=== PATIENT | female | born 1990 | race Caucasian/White ===

== ENCOUNTER → 2023-04-27 11:11 | Outpatient (CLI) | payer BC, SELFPAY ==
[2023-04-27 12:01] LABS: Basophils % 0.3 % (0.1-2.0); Eosinophils # 0.2 K/mm3 (0.0-0.4); Eosinophils % 2.5 % (0.1-12.0); Hematocrit 39.3 % (37.0-47.0); Hemoglobin 12.8 g/dL (12.2-16.2); Mean Corpuscular HGB Conc 32.5 g/dL (31.8-35.4); Mean Corpuscular Hemoglobin 28.6 pg (27.0-31.2); Mean Corpuscular Volume 87.9 fl (81-99); Monocytes # 0.3 K/mm3 (0.1-1.0); Monocytes % 4.3 % (1.7-9.3); Neutrophils # 5.1 K/mm3 (1.8-7.8); Neutrophils % 66.9 % (37.0-80.0); Platelet Count 289 K/mm3 (142-424); Red Blood Count 4.47 M/mm3 (4.20-5.40); White Blood Count 7.6 K/mm3 (4.8-10.8)
[2023-04-29 11:50] LABS: Progesterone 11.5 ng/mL (.); Rapid Plasma Reagin Ab Titer Non Reactive titer (NonRea<1:1)
[2023-05-01 08:57] LABS: HIV Screen 4th Generation wRfx Non Reactive; Hepatitis B Surface Antigen Negative; Hepatitis C Antibody Non Reactive
[2023-05-01 08:58] LABS: Rubella Antibodies, IgG <0.90
== END ==
PROVIDERS: PCP Family Medicine; Visit Provider Obstetrics & Gynecology
DX: Z34.91 Encounter for supervision of normal pregnancy, unspecified, first trimester (principal); Z3A.01 Less than 8 weeks gestation of pregnancy
CPT/HCPCS: 36415; 84144; 84702; 85025; 86593; 86703; 86762; 86850; 87086; 87340; 87380; G0432

== ENCOUNTER 2023-07-31 10:08 | Outpatient (CLI) | payer BC, SELFPAY ==
--- NOTE | 2023-07-31 10:08 | US_ITS ---
PROCEDURE: US OB /MATERNAL DETAIL CLINICAL INDICATION: 20 week anatomy scan COMPARISON: No exams were available for comparison FINDINGS: Transabdominal sonographic images of the pelvis were obtained. From her established due date she is 20 weeks 5 days. Single viable intrauterine gestation. Breech position. Placenta: Anteriorplacenta grade 1. There is an average amount of fluid. The cervix appears satisfactory. Closed and measuring 4.0 cm in length. Complete survey performed and was unremarkable on the submitted images as in PACS. No discrete anomalies identified on survey imaging by technologist. Active fetus. Three-vessel cord with satisfactory umbilical cord insertion. 4- chamber heart noted. Situs, aortic arch, LVOT, three-vessel view appear normal. Survey of brain & ventricles Unremarkable. Cerebellum, thalamus, choroid plexus, cisterna magna appear normal. Face and neck survey unremarkable. Profile, nasion, lips and nose appeared normal. Diaphragm and chest views unremarkable. Abdomen: Both kidneys noted and unremarkable. Stomach and bladder noted and satisfactory. Spine: Survey of the spine satisfactory with no anomalies identified nor imaged. Cervical, thoracic, lower spine appear normal. Both arms and legs noted. Amniotic Fluid: Adequate. MVP 4.47 cm. Measurements: Average ultrasound age 21weeks 3days. Estimated due date by ultrasound age 0512/08/2023. Estimated weight 417g BPD = 21weeks 1day HC = 21weeks 3days AC = 21weeks 5days FL = 21weeks 1day Heart Rate = 153bpm Cerebellum = 20weeks 4days Humerus = 21weeks 4days HC/AC is 1.15 FL/BPD is 0.7 FL/AC is 0.21 IMPRESSION: 1. Viable fetus in the breech presentation with an anterior placenta grade 1. 2. The fluid is within normal limits. 3. Anatomical scan appears normal. 4. biometry is consistent with a dates. 5. There are prominent veins measuring up to 1.6 cm in the right lower quadrant adjacent to the uterus. 6. There may be some increased vascularity anterior to the placenta as well. Suggest follow-up examination in 4-6 weeks. Dictated by: Musa Gonzalez MD 07/31/2023 17:35 Musa Gonzalez MD in [facility] 07/31/2023 17:35
== END 2023-07-31 23:59 ==
LOC: RAD 10:08
PROVIDERS: PCP Family Medicine; Visit Provider Obstetrics & Gynecology
DX: Z34.92 Encounter for supervision of normal pregnancy, unspecified, second trimester (principal); Z3A.20 20 weeks gestation of pregnancy
CPT/HCPCS: 76811

== ENCOUNTER 2023-08-28 11:00 | Outpatient (CLI) | payer BC, SELFPAY ==
--- NOTE | 2023-08-28 11:01 | US_ITS ---
PROCEDURE: US OB LIMITED POSITION CLINICAL INDICATION: breech presentation, and placental abnormality COMPARISON: US US OB /MATERNAL DETAIL from 07/31/2023 FINDINGS: Transabdominal sonographic images of the pelvis were obtained. The following parameters are obtained: From her established due date she is 24weeks 5days Viable fetus in the cephalic presentation with an anterior placenta grade 1. The placenta is 3.6 cm from the internal cervical os. The increased vascularity in the right lower quadrant was not seen today. Repeat imaging of the RLQ of the uterus should be performed. The cervix measures 4.5 cm. heart rate: 140bpm bpm. Amniotic fluid appears normal. No obvious anomalies evident. profile seen, nasion, stomach, bladder, kidneys, three-vessel cord, four chamber heart appear normal. IMPRESSION: 1. Viable fetus in the cephalic presentation with an anterior placenta grade 1. The placenta is 3.6 cm from the internal cervical os. 2. Increased vascularity in the right lower quadrant was not seen today and repeat imaging to include the right lower quadrant of the uterus should be done. 3. The fluid is within normal limits. 4. Limited anatomical scan appears normal. Dictated by: Musa Gonzalez MD 08/28/2023 14:39 Musa Gonzalez MD in [facility] 08/28/2023 14:39
== END 2023-08-28 23:59 ==
LOC: RAD 11:01
PROVIDERS: PCP Family Medicine; Visit Provider Obstetrics & Gynecology
DX: O32.1XX0 Maternal care for breech presentation, not applicable or unspecified (principal); O43.102 Malformation of placenta, unspecified, second trimester; Z3A.24 24 weeks gestation of pregnancy
CPT/HCPCS: 76815

== ENCOUNTER 2023-10-06 09:18 | Outpatient (CLI) | payer BC, SELFPAY ==
[2023-10-06 09:56] LABS: Basophils # 0.1 K/mm3 (0-0.2); Basophils % 0.5 % (0.1-2.0); Eosinophils # 0.3 K/mm3 (0.0-0.4); Eosinophils % 2.7 % (0.1-12.0); Hematocrit 37.7 % (37.0-47.0); Hemoglobin 12.5 g/dL (12.2-16.2); Lymphocytes % 16.4 % (10-50); Mean Corpuscular HGB Conc 33.2 g/dL (31.8-35.4); Mean Corpuscular Hemoglobin 31.4 pg (27.0-31.2); Mean Corpuscular Volume 94.5 fl (81-99); Mean Platelet Volume 8.5 fl (7.4-10.4); Monocytes # 0.4 K/mm3 (0.1-1.0); Monocytes % 3.3 % (1.7-9.3); Neutrophils # 9.5 K/mm3 (1.8-7.8); Neutrophils % 77.1 % (37.0-80.0); Platelet Count 324 K/mm3 (142-424); Red Blood Count 3.99 M/mm3 (4.20-5.40); Red Cell Distribution Width 13.7 % (11.5-17.5); White Blood Count 12.3 K/mm3 (4.8-10.8)
[2023-10-06 10:26] LABS: Glucose,Fasting 88 mg/dl (74-100)
[2023-10-06 14:52] LABS: Glucose 1 Hour 130 mg/dL (74-100)
== END 2023-10-06 23:59 ==
LOC: LAB 09:19
PROVIDERS: PCP Family Medicine; Visit Provider Obstetrics & Gynecology
DX: O26.893 Other specified pregnancy related conditions, third trimester (principal); Z3A.30 30 weeks gestation of pregnancy
CPT/HCPCS: 36415; 82951; 85025

== ENCOUNTER 2023-10-17 12:55 | Outpatient (CLI) | payer BC, SELFPAY ==
--- NOTE | 2023-10-17 | US_ITS ---
PROCEDURE: US OB FOLLOW UP CLINICAL INDICATION: SGA COMPARISON: US US OB /MATERNAL DETAIL from 07/31/2023 US US OB LIMITED POSITION from 08/28/2023 FINDINGS: Transabdominal sonographic images of the pelvis were obtained. The following parameters are obtained: From her established due date she is 31weeks 6days Viable fetus in the cephalic presentation with a posterior placenta grade 1. The cervix measures 4.6 cm. heart rate: 140bpm bpm. weight: 2196 grams, 4 lb 13 oz. BPD: 33weeks 5days, 88 percentile HC: 34weeks 4days, 83 percentile AC: 33weeks 2days, 84 percentile FL: 33weeks 4days, 80 percentile HC/AC: 1.06 FL/BPD: 0.78 FL/AC: 0.22 Growth percentile: 87 Amniotic fluid index: 14.31cm, MVP 5.29 cm. S/ D ratio: 2.19-2.92 No obvious anomalies evident. stomach, bladder, kidneys, three-vessel cord, four chamber heart appear normal. There continues to be prominent vascularity in the right lower quadrant with enlarged vessels measuring up to 1.7 cm in diameter. IMPRESSION: 1. Viable fetus in the cephalic presentation with an anterior placenta grade 1. 2. The fluid is within normal limits with an amniotic fluid index of 14.31 cm, MVP 5.29 cm. 3. There has been good interval growth and the fetus is currently 87th percentile, globally almost 2 weeks ahead on its growth. 4. The SD ratio today is normal. 5. There continues to be prominent vascularity in the right lower quadrant with vessels measuring up to 1.7 cm in diameter. Dictated by: Musa Gonzalez MD 10/18/2023 05:54 Musa Gonzalez MD in [facility] 10/18/2023 05:54
== END 2023-10-17 23:59 ==
LOC: RAD 12:55
PROVIDERS: PCP Family Medicine; Visit Provider Obstetrics & Gynecology
DX: O36.5930 Maternal care for other known or suspected poor fetal growth, third trimester, not applicable or unspecified (principal); Z3A.32 32 weeks gestation of pregnancy
CPT/HCPCS: 76816; 76820

== ENCOUNTER 2023-11-19 16:40 | Outpatient (CLI) | payer BC, SELFPAY | END 2023-11-19 23:59 | disposition home or self-care (01) | LOC: LAB.DROPOF 16:41 | PROVIDERS: PCP Obstetrics & Gynecology; Visit Provider Obstetrics & Gynecology | DX: O26.893 Other specified pregnancy related conditions, third trimester (principal); Z3A.37 37 weeks gestation of pregnancy; Z36.85 Encounter for antenatal screening for Streptococcus B | CPT/HCPCS: 86403 ==

== ENCOUNTER 2023-12-05 15:14 | Inpatient (IN) | payer BC, SELFPAY ==
[2023-12-05 13:45] VITALS: BP 134/99; PULSE 91; RESP 18; TEMP 37.2; O2SAT 98; BMI 33.5
[2023-12-05 16:12] LABS: Microscopic, Urine URINE MICROSCOPIC (MICROSCOPIC)
[2023-12-05 16:20] LABS: Basophils # 0.1 K/mm3 (0-0.2); Basophils % 0.3 % (0.1-2.0); Eosinophils # 0.5 K/mm3 (0.0-0.4); Eosinophils % 2.9 % (0.1-12.0); Hematocrit 37.9 % (37.0-47.0); Hemoglobin 12.7 g/dL (12.2-16.2); Lymphocytes # 2.2 K/mm3 (0.7-4.5); Lymphocytes % 14.4 % (10-50); Mean Corpuscular HGB Conc 33.5 g/dL (31.8-35.4); Mean Corpuscular Hemoglobin 30.8 pg (27.0-31.2); Mean Corpuscular Volume 91.9 fl (81-99); Mean Platelet Volume 8.5 fl (7.4-10.4); Monocytes # 0.5 K/mm3 (0.1-1.0); Monocytes % 3.4 % (1.7-9.3); Neutrophils # 12.3 K/mm3 (1.8-7.8); Platelet Count 256 K/mm3 (142-424); Red Blood Count 4.12 M/mm3 (4.20-5.40); Red Cell Distribution Width 14.3 % (11.5-17.5); White Blood Count 15.6 K/mm3 (4.8-10.8)
[2023-12-05 16:23] LABS: MANUAL DIFFERENTIAL MANUAL DIFFERENTIAL (MANUAL DIFF)
[2023-12-05 16:32] LABS: Eosinophils % 1 % (0-3); Lymphocytes % 16 % (10-50); Monocytes % 2 % (2-9); Neutrophils % 81 % (42-76); Platelet Estimate Normal; RBC Morphology Normal; Total Cells Counted 100
[2023-12-05 16:44] LABS: Appearance,Urine CLEAR (Clear); Bilirubin,Urine Negative (Negative); Blood, Urine TRACE-I (Negative); Color,Urine YELLOW (Yellow); Glucose,Urine (UA) Negative (Negative); Ketones,Urine Negative (Negative); Leukocyte Esterase,Urine Negative (Negative); Nitrate,Urine Negative (Negative); Protein,Urine Negative (Negative); Specific Gravity, Urine 1.015 (1.005-1.030); Urobilinogen,Urine 0.2 EU/dl (0.2)
[2023-12-05 16:56] LABS: Amphetamine/Metha Screen,Urine Negative ng/ml (<1000); Barbiturates Screen,Urine Negative ng/ml (<200)
[2023-12-05 16:57] LABS: Bacteria,Urine Trace /lpf; Benzodiazepines Screen,Urine Negative ng/ml (<200); RBC,Urine Occasional #/hpf (0-3); WBC,Urine Occasional #/hpf (0-3)
[2023-12-05 16:58] LABS: Cannabinoid Screen,Urine Negative ng/ml (<50); Cocaine Screen,Urine Negative ng/ml (<300)
[2023-12-05 16:59] LABS: Methadone Screen,Urine Negative ng/ml (<300)
[2023-12-05 17:00] LABS: Opiate Screen,Urine Negative ng/ml (<300); Phencyclidine Screen,Urine Negative ng/ml (<25)
[2023-12-05 19:43] VITALS: BP 132/94; PULSE 98; RESP 18; TEMP 36.8; O2SAT 96
[2023-12-06] MEDS: DEXTROSE 5%-LACTATED RINGERS 1,000 ML 125 ML IV (01:05)
[2023-12-06] MEDS: OXYTOCIN/RINGERS LACTATE 30 UNITS/500 ML BAG IV (01:05)
[2023-12-06] MEDS: LACTATED RINGERS 1000ML 1,000 ML 500 ML IV (01:06)
[2023-12-06] MEDS: BUTORPHANOL TARTRATE 2 MG/ML VIAL 1 MG IV (01:59)
[2023-12-06] MEDS: ONDANSETRON 4MG/2ML VIAL 4 MG IV (02:04)
--- NOTE | 2023-12-06 06:10 | P.PNANES_ITS ---
[facility] Disclaimer: The information contained in this section may have been updated after the patient was seen, as this information can be updated by other users. Medical History Vaginitis affecting , antepartum Rubella non-immune status, antepartum History of pre-eclampsia in prior , currently Preeclampsia Surgical History No significant past surgical history Family History Other Substance abuse Social History Smoking Status: Former smoker alcohol intake: never substance use type: denies use current occupational status: unemployed Travel in the last 8 weeks: None [facility] Anesthesia Checklist Patient Identification Patient Identification: Arm Band Structural Data Admitted From: Inpatient Planned Operative Procedure/s: Labor Epidural Consent for Planned Operative Procedure(s) Verified: Yes Verified Documents: Surgical Consent and History and Physical Additional verifications Anesthesia Reactions: No Airway Assessment Dentition: Good Dentition Neurological Assessment Level of Consciousness: Awake, Alert and Appropriate Anesthesia Plan Anesthesia Risk discussed: Yes Anesthesia Plan: Verified ASA Class: II Anesthesia Type: Epidural
[2023-12-06] MEDS: OXYTOCIN/RINGERS LACTATE 30 UNITS/500 ML BAG 999 UNITS IV (08:34)
--- NOTE | 2023-12-06 08:44 | P.PCN_ITS ---
Delivery Note Delivery Date:: 12/06/23 Delivery Time:: 08:30 Anesthesia Type: Epidural Was labor medically induced?: No Induction method: none Gestational age (weeks): 39 delivered prior to 39 weeks?: No Gender: Female at 1 minute: 8 at 5 minutes: 9 Delivery Procedure:: Preoperative diagnosis: 1. at 39 completed this weeks gestation, vertex 2. Rh positive 3. GBS negative 4. History of shoulder dystocia 5. History of preeclampsia with the past 2 pregnancies Postoperative diagnosis: 1. at 39 completed this weeks gestation, vertex 2. Rh positive 3. GBS negative 4. History of shoulder dystocia 5. History of preeclampsia with the past 2 pregnancies EBL: 150mL Specimen: 1. Cord blood Findings: 1. Liveborn viable female infant. Apgars 8/9 at 1 and 5 minutes respectively. Weight pending at time of dictation 2. First degree midline perineal laceration. Periclitoral abrasion Complications: Shoulder dystocia Procedure: Nonoperative spontaneous vaginal delivery Eloisa Shay is a 33-year-old who presented to labor and delivery yesterday with regular painful contractions was noted to make cervical change. She was admitted overnight for labor. Pitocin augmentation was started this morning. She had SROM revealing clear fluid around 730 this morning. She quickly progressed to complete. Her has been relatively uncomplicated. The infant was noted to be in ZOE position. There was not a nuchal cord at time of delivery. The vertex delivered with ease however the shoulders were not coming in after allowing approximately 10 seconds a shoulder dystocia was called and the patient was placed in Kristina. The anterior left shoulder quickly delivered after that not requiring any further maneuvers and the total time for shoulder delivery was approximately 10 seconds. The posterior shoulder delivered without problem. It was felt this was more of a problem secondary to the weight of the and less to the shoulders. The was bulb suctioned and was crying immediately following delivery. The was placed on the maternal abdomen and greater than one minute was appreciated for delayed cord clamping. The umbilical cord was doubly clamped and cut. Cord blood was collected and sent for routine testing. The placenta delivered with cord traction and suprapubic contertraction. Pitocin was started and the placenta and cord were inspected. The placenta was noted to be intact, with a 3 vessel cord. The uterus was firm and bleeding was minimal. The perineum, vaginal singh, cervix, and paraurethral area were inspected thoroughly. There was a first- degree midline perineal laceration that was repaired with 3-0 Vicryl in a normal fashion. The patient was counseled on her periclitoral laceration and elected to let it heal on its own as it was hemostatic. This concluded the delivery. The patient was counseled regarding the events of the delivery and repair. The patient tolerated the delivery well. All counts were correct by nursing. Mother and infant were doing well and bonding upon my leaving the delivery room. Placental Delivery Description: Spontaneous
[2023-12-06] MEDS: WITCH HAZEL 40 PADS/BOX 1 EACH TP (12:51)
[2023-12-06] MEDS: BENZOCAINE-MENTHOL SPRAY 56GM CAN TP (12:51)
--- NOTE | 2023-12-06 15:56 | P.HP_ITS ---
History of Present Illness *Admission Date: 12/05/23 *Reason for visit:: labor *History of present illness: Fiordaliza is a pleasant 33-year-old G3, P2 who presented with regular painful contractions on 12/05/2023. She was noted to make cervical change and was admitted for labor. She has an AMIRA of 12/13/2023 and is based off of a first trimester ultrasound. Her is complicated by history of preeclampsia and a history of shoulder dystocia. She refused to take baby aspirin with this . On presentation patient endorsed good movement and denies any leakage of fluid or vaginal bleeding. AB+, antibody negative, rubella non-immune, hepatitis B negative, hepatitis C n egative, RPR negative, HIV negative 1 hour GTT: 130 GBS negative PFSH PFSH Disclaimer: The information contained in this section may have been updated after the patient was seen, as this information can be updated by other users. Medical History Vaginitis affecting , antepartum Rubella non-immune status, antepartum History of pre-eclampsia in prior , currently Preeclampsia Surgical History No significant past surgical history Family History Other Substance abuse Social History Smoking Status: Former smoker alcohol intake: never substance use type: denies use current occupational status: unemployed Travel in the last 8 weeks: None Review of Systems Review of Systems Review of systems (narrative): Review of Systems Constitutional: Denies fever, chills, and sweats Eyes: Denies vision change/ pain Respiratory: Denies cough and shortness of breath Cardiovascular: Denies chest pain and lightheadedness Gastrointestinal: Admits abdominal pain with contractions. Denies nausea, vomiting. Genitourinary: Denies dysuria and incontinence Musculoskeletal: Denies shoulder pain and back pain Neurological: Denies change in speech or headaches Meds Home Medications and Allergies Home Medications Medication Instructions Recorded Confirmed Type vit no.95-ferrous 1 tab PO DAILY 09/18/23 12/05/23 History fumarate 28 mg-folic acid 800 mcg tablet () New Prescriptions to Start Prescriptions: Allergies Allergy/AdvReac Type Severity Reaction Status Date / Time No Known Allergies Allergy Verified 12/04/23 13:15 Exam Data for Last 24 hours Vital signs and Labs for Last 24 Hours: Temp Pulse Resp BP Pulse Ox O2 Del Method 98.3 F 98 H 18 132/94 H 96 Room Air 12/05/23 19:43 12/05/23 19:43 12/05/23 19:43 12/05/23 19:43 12/05/23 19:43 12/05/23 19:43 Laboratory Results - last 24 hr 12/05/23 15:45: Urine Color Yellow, Urine Appearance Clear, Urine pH 7.0, Ur Specific [place] 1.015, Urine Protein Negative, Urine Glucose (UA) Negative, Urine Ketones Negative, Urine Blood Trace-i, Urine Nitrate Negative, Urine Bilirubin Negative, Urine Urobilinogen 0.2, Ur Leukocyte Esterase Negative, Urine RBC Occasional, Urine WBC Occasional, Ur Squamous Epith Cells 5-10, Urine Bacteria Trace, Urine Opiates Screen Negative, Urine Methadone Screen Negative, Ur Barbituates Screen Negative, Ur Phencyclidine Scrn Negative, Ur Amphetamines Screen Negative, U Benzodiazepines Scrn Negative, Urine Cocaine Screen Negative, U Marijuana (THC) Screen Negative 12/05/23 16:02: WBC 15.6 H, RBC 4.12 L, Hgb 12.7, Hct 37.9, MCV 91.9, MCH 30.8, MCHC 33.5, RDW 14.3, Plt Count 256, MPV 8.5, Neut % (Auto) 79.0, Lymph % (Auto) 14.4, Summers % (Auto) 3.4, Eos % (Auto) 2.9, Baso % (Auto) 0.3, Neut # (Auto) 12.3 H, Lymph # (Auto) 2.2, Summers # (Auto) 0.5, Eos # (Auto) 0.5 H, Baso # (Auto) 0.1, Total Counted 100, Neutrophils % (Manual) 81 H, Lymphocytes % (Manual) 16, Monocytes % (Manual) 2, Eosinophils % (Manual) 1, Platelet Estimate Normal, RBC Morphology Normal, Blood Type AB Positive, Antibody Screen Negative, Crossmatch (AHG) See Detail I & O for Last 24 hours: Intake & Output 12/03/23 12/04/23 12/05/23 12/06/23 23:59 23:59 23:59 23:59 Weight 227 lb Narrative: General: patient is alert oriented in no acute distress and responds appropriately to questions. HEENT: NCAT, EOMI, moist mucous membranes, neck supple with full ROM Cardiovascular: RRR +S1/S2, no murmurs or rubs Pulmonary: Clear to auscultation bilaterally, nonlabored breathing, symmetric chest rise Abdominal: Gravid abdomen appropriate for gestation. No guarding, rebound, or tenderness noted. SVE: On admission /-2. Extremities: trace edema, no tenderness or cyanosis noted Skin: Normal turgor, intact, warm. Negative for erythema, pallor, petechia, or lesions Neurologic: Negative for sensory or motor deficit Psychiatric: Normal affect, normal thought process, good judgment and insight, no depression or anxious mood appreciated. *Routine HEENT Exam Head: Present normocephalic and atraumatic Eye: Present EOMI, PERRL and normal accommodation; Absent conjunctival icterus, scleral injection, nystagmus or exophthalmos ENT: Present mucous membranes moist *Routine Respiratory Exam Respiratory: Present CTA bilaterally, normal respiratory effort, able to speak in complete sentences and symmetric chest movement; Absent accessory muscle use, decreased breath sounds, rales, respiratory distress, wheezes, distant breath sounds or diminished air movement *Routine Cardiovascular Exam Cardiovascular: Present RRR, Normal S1 and Normal S2; Absent murmur or gallop *Routine Abdominal Exam Abdominal: Present soft and normoactive bowel sounds; Absent tenderness, distended, rebound or guarding *Routine Rectal Exam Rectal:: deferred *Routine Genitalia Exam Genitalia:: normal female Assessment and Plan *Assessment and plan (1) Rubella non-immune status, antepartum: Status: Acute Category: Medical Code(s): O09.899 - Supervision of other high risk pregnancies, unspecified trimester; Z28.39 - Other underimmunization status (2) History of pre-eclampsia in prior , currently : Status: Acute Category: Medical Code(s): O09.299 - Supervision of with other poor reproductive or obstetric history, unspecified trimester (3) : Status: Acute Qualifiers: Weeks of gestation: 37 weeks Qualified Code(s): Z3A.37 - 37 weeks gestation of Category: Medical Code(s): Z34.90 - Encounter for supervision of normal , unspecified, unspecified trimester Plan - Monitor vitals - Admit to L&D for labor monitoring. If labor stalls may use Pitocin, per protocol for augmentation. Patient was scheduled for Pitocin induction at 1 AM on 12/06/2023. - External FHR and TOCO monitor - GBS negative/ Blood type: AB+ - Hemoglobin: 12.7, Plt: 256 - Plan for epidural - Anticipate vaginal delivery of female infant: Gifty #Rubella nonimmune -[employer] and vaccinate patient if she desires
[2023-12-07 06:09] LABS: Basophils # 0.1 K/mm3 (0-0.2); Basophils % 0.4 % (0.1-2.0); Eosinophils # 0.6 K/mm3 (0.0-0.4); Eosinophils % 4.4 % (0.1-12.0); Hematocrit 32.5 % (37.0-47.0); Hemoglobin 11.2 g/dL (12.2-16.2); Lymphocytes # 2.9 K/mm3 (0.7-4.5); Lymphocytes % 22.3 % (10-50); Mean Corpuscular HGB Conc 34.5 g/dL (31.8-35.4); Mean Corpuscular Hemoglobin 31.5 pg (27.0-31.2); Mean Corpuscular Volume 91.2 fl (81-99); Mean Platelet Volume 8.8 fl (7.4-10.4); Monocytes # 0.6 K/mm3 (0.1-1.0); Monocytes % 4.4 % (1.7-9.3); Neutrophils % 68.6 % (37.0-80.0); Platelet Count 237 K/mm3 (142-424); Red Blood Count 3.56 M/mm3 (4.20-5.40); Red Cell Distribution Width 14.3 % (11.5-17.5); White Blood Count 13.1 K/mm3 (4.8-10.8)
[2023-12-07 08:30] VITALS: TEMP 36.5
--- NOTE | 2023-12-07 12:26 | EXP.DC.SUM ---
General Admission date:: 12/05/23 Discharge date: 12/07/23 HPI HPI HPI: Fiordaliza is a pleasant 33-year-old G3, P2 who presented with regular painful contractions on 12/05/2023. She was noted to make cervical change and was admitted for labor. She has an AMIRA of 12/13/2023 and is based off of a first trimester ultrasound. Her is complicated by history of preeclampsia and a history of shoulder dystocia. She refused to take baby aspirin with this . On presentation patient endorsed good movement and denies any leakage of fluid or vaginal bleeding. AB+, antibody negative, rubella non-immune, hepatitis B negative, hepatitis C negative, RPR negative, HIV negative 1 hour GTT: 130 GBS negative Hospital Course Hospital Course Hospital Course: Patricia Shay is a 33-year-old who was admitted in labor at 38 weeks and 6 days. She ended up requiring labor augmentation and ultimately delivered at 39 weeks and 0 days gestation. She had spontaneous rupture of membranes with clear fluid and delivered approximately 45 minutes after that. She is a G3, P3 day #1 from a normal spontaneous vaginal delivery with a first-degree laceration. Her blood type is AB+. She is rubella nonimmune. She had a female infant that weighed 9 pounds and 11 ounces and was 21-1/2 inches long. Apgars were 8 and 9. Of note she did have a mild 10-second shoulder dystocia that was relieved by Kristina. Her EBL for delivery with 150 mL. She has both breast and bottlefeeding. Patient desires discharge home today. Routine discharge options reviewed with patient in detail and she was understanding. All questions and concerns were addressed Exam Data for Last 24 hours Vital signs and Labs for Last 24 Hours: Temp Pulse Resp BP Pulse Ox O2 Del Method 97.7 F 98 H 18 132/94 H 96 Room Air 12/07/23 08:30 12/05/23 19:43 12/05/23 19:43 12/05/23 19:43 12/05/23 19:43 12/05/23 19:43 Laboratory Results - last 24 hr 12/05/23 16:02: Blood Type AB Positive, Antibody Screen Negative, Crossmatch (AHG) See Detail 12/07/23 05:58: WBC 13.1 H, RBC 3.56 L, Hgb 11.2 L, Hct 32.5 L, MCV 91.2, MCH 31.5 H, MCHC 34.5, RDW 14.3, Plt Count 237, MPV 8.8, Neut % (Auto) 68.6, Lymph % (Auto) 22.3, Mcduffie % (Auto) 4.4, Eos % (Auto) 4.4, Baso % (Auto) 0.4, Neut # (Auto) 9.0 H, Lymph # (Auto) 2.9, Mcduffie # (Auto) 0.6, Eos # (Auto) 0.6 H, Baso # (Auto) 0.1 I & O for Last 24 hours: Intake & Output 12/04/23 12/05/23 12/06/23 12/07/23 23:59 23:59 23:59 23:59 Weight 227 lb Narrative: General: patient is alert oriented in no acute distress and responds appropriately to questions. Appears to be in minimal pain. Sitting up in the chair and doing well HEENT: NCAT, EOMI, moist mucous membranes, neck supple with full ROM Cardiovascular: RRR +S1/S2, no murmurs or rubs Pulmonary: Clear to auscultation bilaterally, nonlabored breathing, symmetric chest rise Abdominal: Fundus below the umbilicus, firm, and tenderness appropriate for the period. Extremities: trace edema, no tenderness or cyanosis noted Skin: Normal turgor, intact, warm. Negative for erythema, pallor, petechia, or lesions Neurologic: Negative for sensory or motor deficit Psychiatric: Normal affect, normal thought process, good judgment and insight, no depression or anxious mood appreciated. Results Data Completed and Pending Labs on day of discharge: Labs from last 24 hours 12/07/23 12/05/23 05:58 16:02 WBC 13.1 H RBC 3.56 L Hgb 11.2 L Hct 32.5 L MCV 91.2 MCH 31.5 H MCHC 34.5 RDW 14.3 Plt Count 237 MPV 8.8 Neut % (Auto) 68.6 Lymph % (Auto) 22.3 Mcduffie % (Auto) 4.4 Eos % (Auto) 4.4 Baso % (Auto) 0.4 Neut # (Auto) 9.0 H Lymph # (Auto) 2.9 Mcduffie # (Auto) 0.6 Eos # (Auto) 0.6 H Baso # (Auto) 0.1 Blood Type AB Positive Antibody Screen Negative Crossmatch (AHG) See Detail DS: Diagnosis Discharge Diagnosis (1) Rubella non-immune status, antepartum: Status: Acute Code(s): O09.899 - Supervision of other high risk pregnancies, unspecified trimester; Z28.39 - Other underimmunization status Problem details: Counseling vaccinate if the patient desires (2) History of pre-eclampsia in prior , currently : Status: Acute Code(s): O09.299 - Supervision of with other poor reproductive or obstetric history, unspecified trimester (3) : Status: Acute Code(s): Z34.90 - Encounter for supervision of normal , unspecified, unspecified trimester Qualifiers: Weeks of gestation: 37 weeks Qualified Code(s): Z3A.37 - 37 weeks gestation of Problem details: day 1 from a normal spontaneous vaginal delivery -Doing well. Vital signs stable. Hemoglobin stable. Ambulating, voiding, and tolerating p.o. without difficulty, dysuria, or nausea or vomiting. Appropriate candidate for pressors Discharge Patient will have for interval follow-up Discussed blues and depression with the patient in detail Follow-up in [address] Whitaker for routine visit (4) (normal spontaneous vaginal delivery): Status: Acute Code(s): O80 - Encounter for full-term uncomplicated delivery Meds Home Medications and Allergies Home Medications Medication Instructions Recorded Confirmed Type vit no.95-ferrous 1 tab PO DAILY 09/18/23 12/05/23 History fumarate 28 mg-folic acid 800 mcg tablet () acetaminophen 500 mg tablet 500 mg PO Q6H PRN fever #30 tabs 12/07/23 Rx ibuprofen 800 mg tablet 800 mg PO Q8H PRN pain #60 tabs 12/07/23 Rx New Prescriptions to Start Prescriptions: Anastasiia Mcghee ibuprofen Anastasiia Hassan Allergies Allergy/AdvReac Type Severity Reaction Status Date / Time No Known Allergies Allergy Verified 12/04/23 13:15 Discharge Plan Disposition Patient Disposition: Home, Self-Care Condition: Good Discharge Order Discharge Orders: Discharge Order (Routine); Ordered 12/07/23 Ordered By: Anastasiia Hassan Follow up Plan Follow up with: Musa Gonzalez MD [Staff Physician] - 12/20/23 11:00 am Jennyfer Whitaker DO [Staff Physician] - 1 week (Please call the office to schedule ) Prescriptions/Medication Reconciliation: New ibuprofen 800 mg tablet 800 mg PO Q8H PRN (Reason: pain) Qty: 60 2RF acetaminophen 500 mg tablet 500 mg PO Q6H PRN (Reason: fever) Qty: 30 3RF Continued PNV cmb#95-ferrous fumarate-FA [] 28 mg iron- 800 mcg tablet 1 tab PO DAILY Patient Comments: TAKE 1 TABLET BY MOUTH EVERY DAY Problem Reconciliation Problems Reviewed?: Yes Patient Discharge Instructions ACTIVITY: Continue current activity DIET: regular diet Additional Instructions: Congratulations on the delivery of your sweet baby girl. It is my privilege to be a part of your [employer] team and I am so thankful I could be a part of your special day. Discharge: -Take 800 mg Ibuprofen every 8 hours as needed for pain. You can also take 500-1000 mg of Tylenol in between doses, every 6-8 hours. -Colace can be taken 1-2 times per day as you need to soften your stool. Make sure to drink at least 8 cups of water per day. -Iron supplements can make you constipated. You can take iron tablets every other day if constipation is too bad. -Nothing in the vagina for 6 weeks - no sex, douching, tampons. No tub baths -Do not lift greater than 15 pounds for 6 weeks, this is the equivalent of 2 gallons of milk. -Reasons to return to L&D or call On-Call doctor - fever (greater than 100.4) - heavy vaginal bleeding (soaking through 1 pad in less than 2 hours or passing clots that are egg sized) - vaginal discharge (malodorous and/or purulent) - severe headaches, leg tenderness/edema, or any other symptoms that warrant immediate medical attention. depression/blues - Normal to feel anxious/overwhelmed for first 2 weeks - Talk to your doctor if: anxiety lasts over 2 weeks, trouble bonding with baby, withdrawing from other family members, thoughts of harming yourself or others Blood pressure and preeclampsia instructions 1. Please take your blood pressure twice daily. 2. Please call if greater than 2 values are higher than: 150 systolic (the top number) or 100 diastolic (the bottom number). 3. Please go to the emergency room or labor and delivery triage if any value is higher than: 160 systolic (the top number) or 110 diastolic (the bottom number). 4. Please call if unrelenting headache (does not go away with rest or Tylenol or ibuprofen), changes in vision (spots, floaters, flashes of light), chest pain, shortness of breath, or right upper quadrant (liver) abdominal pain. Anastasiia Hassan DO [facility] [phone] *Nothing in the Vagina for 6 weeks* *No strenuous activity* *No heavy lifting* *No tub baths until okay's by MD* Patient Instructions: Depression, Hemorrhage, DI for Labor and Delivery, Vaginal , DI for Pre-eclampsia Providers Primary Care Provider: Gregorio Lopez Admit Provider: Musa Gonzalez Attending Provider: Musa Gonzalez
== END 2023-12-07 14:53 | disposition home or self-care (01) | DRG 807 ==
LOC: OBOUT 15:16 → OB 15:16
PROVIDERS: Obstetrics & Gynecology; Admitting Provider Nurse Practitioner Obstetrics & Gynecology; PCP Family Medicine; Visit Provider Nurse Practitioner Obstetrics & Gynecology
DX: O70.0 First degree perineal laceration during delivery (principal); Z37.0 Single live birth; Z3A.39 39 weeks gestation of pregnancy
CPT/HCPCS: 59409; 36415; 59025; 80307; 81001; 85007; 85025; 86850; 94761; G0283; J2405